=== PATIENT | male | born 1960 | race Caucasian/White ===

== ENCOUNTER 2022-07-03 16:09 | Observation (INO) | payer MEDICARE ==
[~2022-07-03] VITALS: Ht 185.4 cm; Wt 90.7 kg
[~2022-07-03 16:09] MED LIST: ZESTRIL40 MG PO
[2022-07-03 17:50] LABS: HEMOGLOBIN 15.6 gm/dl (14.0-17.5); RED BLOOD COUNT 5.44 M/UL (4.20-5.50); WHITE BLOOD COUNT 8.5 K/UL (4.5-11.0)
[2022-07-04 06:20] LABS: HEMOGLOBIN 13.3 gm/dl (14.0-17.5); RED BLOOD COUNT 4.78 M/UL (4.20-5.50); WHITE BLOOD COUNT 5.4 K/UL (4.5-11.0)
[2022-07-04] MEDS ORDERED: FUROSEMIDE20 MG PO (11:18)
[2022-07-04] MEDS ORDERED: FENOFIBRATE160 MG PO (11:19)
[2022-07-04] MEDS ORDERED: ROPINIROLE HCL2 MG PO (11:20)
[2022-07-04] MEDS ORDERED: METOPROLOL TART25 MG PO (11:21)
[2022-07-04] MEDS ORDERED: HYDROCODON-ACE1 EAC2 PO (11:22)
[2022-07-04] MEDS ORDERED: GABAPENTIN800 MG PO (11:23)
[2022-07-04] MEDS ORDERED: CLONAZEPAM1 MG PO (11:24)
[2022-07-04] MEDS ORDERED: QUETIAPINE FUM200 MG PO (11:25)
[2022-07-04] MEDS ORDERED: OMEGA-31000 MG PO (11:26)
[2022-07-04] MEDS ORDERED: LEVOTHYROXINE88 MCG PO (11:27)
[2022-07-04] MEDS ORDERED: ATORVASTATIN CA20 MG PO (11:28)
[2022-07-04] MEDS ORDERED: DULOXETINE HCL60 MG PO (11:29)
--- NOTE | 2022-07-04 16:36 | NUR ---
PATIENT CAME TO THE NURSING STATION STATING HE NEEDS HIS IV TAKEN OUT BECAUSE HE HAS AN EMERGENCY AT HOME AND IS LEAVING. DR LAWTON NOTIFIED. DR LAWTON STATED LET PATIENT SIGN AMA PAPER AND HE CAN LEAVE. IV TAKEN OUT. PATIENT EDUCATED ON DANGERS OF LEAVING AGAINST MEDICAL ADVICE.
== END 2022-07-04 16:40 | disposition left against medical advice (07) ==
LOC: ER1 16:09 → M/S 20:21 → CDU 20:21 → M/S 20:21
PROVIDERS: Family Medicine; Internal Medicine; ADMIT Internal Medicine
DX: R79.89 Other specified abnormal findings of blood chemistry (principal); R07.89 Other chest pain; I11.0 Hypertensive heart disease with heart failure; I50.20 Unspecified systolic (congestive) heart failure; E11.51 Type 2 diabetes mellitus with diabetic peripheral angiopathy without gangrene; E78.2 Mixed hyperlipidemia; E78.5 Hyperlipidemia, unspecified; J44.9 Chronic obstructive pulmonary disease, unspecified; N17.9 Acute kidney failure, unspecified; F17.210 Nicotine dependence, cigarettes, uncomplicated; J96.01 Acute respiratory failure with hypoxia; I45.10 Unspecified right bundle-branch block; E88.09 Other disorders of plasma-protein metabolism, not elsewhere classified; Z53.29 Procedure and treatment not carried out because of patient's decision for other reasons; Z79.899 Other long term (current) drug therapy
CPT/HCPCS: ECHO; 36415; 36600; 71045; 80053; 80061; 82550; 82553; 82803; 82962; 83036; 83735; 83880; 84484; 84550; 85025; 87040; 93005; 93306; 94760; 96374; 96376; 97116; 97161; 99285; G0378; J1940

== ENCOUNTER 2022-07-06 21:52 | Inpatient (IN) | payer MEDICARE ==
[~2022-07-06] VITALS: Ht 188 cm; Wt 100.8 kg
[~2022-07-06 21:52] MED LIST changes: +ATORVASTATIN CA20 MG PO; +CLONAZEPAM1 MG PO; +DULOXETINE HCL60 MG PO; +FENOFIBRATE160 MG PO; +FUROSEMIDE20 MG PO; +GABAPENTIN800 MG PO; +HYDROCODON-ACE1 EAC2 PO; +LEVOTHYROXINE88 MCG PO; +METOPROLOL TART25 MG PO; +OMEGA-31000 MG PO; +QUETIAPINE FUM200 MG PO; +ROPINIROLE HCL2 MG PO
[2022-07-07 02:23] LABS: WHITE BLOOD COUNT 6.7 K/UL (4.5-11.0)
[2022-07-07 03:05] LABS: HEMOGLOBIN 15.4 gm/dl (14.0-17.5); RED BLOOD COUNT 5.42 M/UL (4.20-5.50)
--- NOTE | 2022-07-07 15:57 | NUR ---
Gave report to Amelie Garcia on MS 5 @ [phone].
[2022-07-08 06:15] LABS: HEMOGLOBIN 13.4 gm/dl (14.0-17.5); RED BLOOD COUNT 4.77 M/UL (4.20-5.50); WHITE BLOOD COUNT 4.8 K/UL (4.5-11.0)
--- NOTE | 2022-07-08 17:45 | NUR ---
PT VISUALIZED BY THIS RN TAKING MEDICATIONS THAT ARE HIS HOME MEDICATIONS WHILE IN THE ROOM. PT STATES THAT HE IS SUPPOSED TO HAVE HYDROCODONE 10MG TID SCHEDULED AND GABPENTIN 600MG TID AND THAT HE HAS NOT BEEN RECIEVING IT. PT WILL NOT ALLOW THIS RN TO LOCK UP THOSE MEDICATIONS WITH SECURITY PT STATED "IM GOING TO TAKE THEM BECAUSE I AM SUPPOSED TO HAVE THEM. I WANT TO SPEAK TO THE DOCTOR ABOUT MY MEDICATIONS." MD NOTIFIED AND AWARE OF SITUTATION.
--- NOTE | 2022-07-08 20:05 | NUR ---
PT IS ACTING BELIGERANT, PT IS TAKING HOME MEDS AND BECOMING LETHARGIC AND UNABLE TO BE WOKEN UP. PT SAID THAT HE WAS SIGNING OUT AMA AND LEAVING. PATIENT WAS EDUCATED ON THE RISKS OF SIGNING OUT AMA WITH HIS OXYGEN DROPPING DOWN TO THE 70'S WITH 3 L ON A NASAL CANNULA. DOCTOR WAS NOTIFIED. HOUSE WAS NOTIFIED AND MADE AWARE OF THE SITUATION. PATIENT SAID THAT HE WANTED TO STAY AND SEE THE DOCTOR. PATIENT THEN SAID HE DID NOT WANT TO SIGN OUT AMA. PATIENT AGREED TO LET ME LOCK UP HIS MEDICATION IN PHARMACY. PILLS WERE COUNTED AND WITTNESSED BY ANOTHER NURSE. PILLS WERE WALKED DOWN WITH SECURITY AT SIDE. PHARMACY COUNTED PILLS AND CONFIRMED. PATIENT IS NOW RESTING.
--- NOTE | 2022-07-09 04:31 | NUR ---
TECH WAS IN PATIENTS ROOM CLEANING AND NOTICED 5 PILLS IN THE FLOOR THAT WAS NOT NURSE ADMINISTERED. MEDICATION WAS TOOK DOWN TO PHARMACY AND PHARMACY THREW THE PILLS IN THE TRASH.
--- NOTE | 2022-07-09 04:57 | NUR ---
PT O2 DROPPED TO LOW 80'S. WENT AND WOKE PATIENT UP AND INFORMED HIM TO PUT HIS OXYGEN ON. PT WONT WAKE UP AND PUT ON OXYGEN PATIENT STATED "IM NOT DOING A DAMN THING"
[2022-07-09 06:27] LABS: HEMOGLOBIN 12.4 gm/dl (14.0-17.5); RED BLOOD COUNT 4.52 M/UL (4.20-5.50); WHITE BLOOD COUNT 5.1 K/UL (4.5-11.0)
[2022-07-10 04:35] LABS: HEMOGLOBIN 13.4 gm/dl (14.0-17.5); RED BLOOD COUNT 4.78 M/UL (4.20-5.50); WHITE BLOOD COUNT 5.4 K/UL (4.5-11.0)
--- NOTE | 2022-07-10 08:09 | NUR ---
PT REFUSES TO WEAR HEART MONITOR. CALLED DR. ANN, HE IS AWARE AND HE STATES HE IS GOING TO COME TALK TO THE PT
--- NOTE | 2022-07-11 15:54 | NUR ---
AT 1130 KERLINE HUNT AND MYSELF FOUND A BOTTLE OF QUETIAPINE IN THE PTS BED WITH 5 PILLS OUT IN THE BED. WE TOOK THE BOTTLE AND CONTACTED C[facility]ER
--- NOTE | 2022-07-11 15:56 | NUR ---
AT 0815 KERLINE AND MYSELF FOUND A BOTTLE OF KLONOPIN IN THE PTS POCKET. TURNED IT IN AND CALLED APPLICATION CONSULTANT
[2022-07-11] MEDS ORDERED: LOPRESSOR 25 MG25 MG PO (16:26)
[2022-07-11] MEDS ORDERED: FUROSEMIDE40 MG PO (16:28)
== END 2022-07-11 19:15 | disposition home or self-care (01) | DRG 291 ==
LOC: ER1 21:52 → CDU 07-07 04:33 → MED SURG 4 07-07 08:40 → M/S 07-07 15:55
PROVIDERS: Internal Medicine; Internal Medicine Nephrology; Physician Assistant; ADMIT Internal Medicine
DX: I13.0 Hypertensive heart and chronic kidney disease with heart failure and stage 1 through stage 4 chronic kidney disease, or unspecified chronic kidney disease (principal); G93.41 Metabolic encephalopathy; I50.23 Acute on chronic systolic (congestive) heart failure; N17.9 Acute kidney failure, unspecified; I73.9 Peripheral vascular disease, unspecified; E11.51 Type 2 diabetes mellitus with diabetic peripheral angiopathy without gangrene; B18.2 Chronic viral hepatitis C; N18.31 Chronic kidney disease, stage 3a; J44.9 Chronic obstructive pulmonary disease, unspecified; I42.0 Dilated cardiomyopathy; Z53.21 Procedure and treatment not carried out due to patient leaving prior to being seen by health care provider; E11.22 Type 2 diabetes mellitus with diabetic chronic kidney disease; Z96.653 Presence of artificial knee joint, bilateral; E87.5 Hyperkalemia; R80.9 Proteinuria, unspecified; I25.5 Ischemic cardiomyopathy; F17.200 Nicotine dependence, unspecified, uncomplicated; E78.5 Hyperlipidemia, unspecified; Z91.19 Patient's noncompliance with other medical treatment and regimen; Z82.49 Family history of ischemic heart disease and other diseases of the circulatory system; Z95.5 Presence of coronary angioplasty implant and graft; Z98.890 Other specified postprocedural states
CPT/HCPCS: 36415; 36600; 70450; 71045; 80048; 80053; 80307; 81001; 82550; 82553; 82803; 82962; 83735; 83880; 84100; 84484; 85025; 85027; 93005; 96372; 96374; 96376; 99285; G0378; J1650; J1940